=== PATIENT | female | born 1980 | race Hispanic/Latino ===

== ENCOUNTER → 2019-02-11 10:36 | Outpatient (CLI) | payer OTHER, SELFPAY | PROVIDERS: Family Provider Family Medicine; PCP Family Medicine; Visit Provider Physician Assistant | DX: R68.89 Other general symptoms and signs (principal) | CPT/HCPCS: 87400 ==

== ENCOUNTER → 2019-02-26 13:53 | Outpatient (CLI) | payer OTHER, SELFPAY ==
[2019-02-26 14:43] LABS: Add Manual Diff / Slide Review NO; Basophils Absolute Auto 0 /uL (0-100); Basophils Percent Auto 0.3 % (0-2); Eosinophils Absolute Auto 100 /uL (0-450); Eosinophils Percent Auto 1.9 % (2-4); Lymphocytes Absolute Auto 2300 /uL (1100-4500); Lymphocytes Percent Auto 33.8 % (25-40); Mean Corpuscular HGB Conc 31.4 % (30-36); Mean Corpuscular Volume 76.3 fL (80-100); Monocytes Absolute Auto 600 /uL (0-900); Monocytes Percent Auto 8.2 % (3-14); Neutrophils Absolute Auto 3900 /uL (1500-7000); Neutrophils Percent Auto 55.8 % (50-75); Platelet Count 307 X10^3/uL (150-400); Red Blood Cell Count 4.59 X10^6/uL (4.0-5.2); Red Cell Distribution Width 16.7 % (11.6-14.8); White Blood Cell Count 6.9 X10^3/uL (4.5-11.0)
[2019-02-26 15:48] LABS: Free T3, Triiodothyronine Free 3.25 pg/mL (2.77-5.27); Free T4, Direct Thyroxine 1.29 ng/dL (0.78-2.19)
[2019-02-26 16:02] LABS: Thyroid Stimulating Hormone 1.93 uIU/mL (0.47-4.68)
== END ==
PROVIDERS: PCP Family Medicine; Visit Provider Family Medicine
DX: D50.8 Other iron deficiency anemias (principal); E05.00 Thyrotoxicosis with diffuse goiter without thyrotoxic crisis or storm
CPT/HCPCS: 36415; 84439; 84443; 84481; 85025

== ENCOUNTER → 2020-08-22 10:45 | Outpatient (CLI) | payer OTHER, SELFPAY ==
[2020-08-22 11:42] LABS: Add Manual Diff / Slide Review NO; Basophils Absolute Auto 0 /uL (0-100); Basophils Percent Auto 0.5 % (0-2); Eosinophils Absolute Auto 100 /uL (0-450); Eosinophils Percent Auto 1.2 % (2-4); Hematocrit 37.2 % (36-46); Hemoglobin 12.1 g/dL (12.0-16.0); Lymphocytes Absolute Auto 1900 /uL (1100-4500); Lymphocytes Percent Auto 30.7 % (25-40); Mean Corpuscular HGB Conc 32.5 % (30-36); Mean Corpuscular Volume 80.1 fL (80-100); Monocytes Absolute Auto 500 /uL (0-900); Monocytes Percent Auto 8.1 % (3-14); Neutrophils Absolute Auto 3700 /uL (1500-7000); Neutrophils Percent Auto 59.5 % (50-75); Platelet Count 245 X10^3/uL (150-400); Red Blood Cell Count 4.65 X10^6/uL (4.0-5.2); Red Cell Distribution Width 14.3 % (11.6-14.8); White Blood Cell Count 6.3 X10^3/uL (4.5-11.0)
[2020-08-22 11:59] LABS: Alanine Aminotransferase 35 IU/L (<35); Albumin 4.4 g/dL (3.5-5.0); Albumin Globulin Ratio 1.4 (1.0-2.8); Alkaline Phosphatase 70 U/L (38-126); Aspartate Aminotransferase 30 IU/L (14-36); BUN Creatinine Ratio 18.5 (6-22); Bilirubin Total 0.4 mg/dL (0.2-1.3); Blood Urea Nitrogen 10 mg/dL (7-17); Calcium 8.8 mg/dL (8.4-10.2); Carbon Dioxide 24 mmol/L (22-32); Chloride 106 mmol/L (98-107); Cholesterol 194 mg/dL (140-199); Estimated Glomerular Filt Rate > 60.0 mL/min (>60); Globulin 3.1 g/dL (1.7-4.1); Glucose 94 mg/dL (70-100); HDL Cholesterol 56 mg/dL (40-60); HEMOLYSIS < 15 (0-50); LDL Cholesterol Calculated 120 mg/dL (<100); Potassium 4.3 mmol/L (3.4-5.1); Sodium 138 mmol/L (137-145); Total Protein 7.5 g/dL (6.3-8.2); Triglycerides 91 mg/dL (35-150)
[2020-08-22 12:27] LABS: TSH w/ Reflex to FT4 2.03 uIU/mL (0.47-4.68)
== END ==
PROVIDERS: PCP Family Medicine; Referring Provider Family Medicine; Visit Provider Family Medicine
DX: N39.0 Urinary tract infection, site not specified (principal); D50.8 Other iron deficiency anemias; E05.00 Thyrotoxicosis with diffuse goiter without thyrotoxic crisis or storm
CPT/HCPCS: 36415; 80053; 80061; 84443; 85025; 87086

== ENCOUNTER → 2020-09-27 13:54 | Outpatient (CLI) | payer OTHER, SELFPAY ==
[2020-09-29 07:28] LABS: COVID19 Sendout Not Detected (Not Detect)
== END ==
PROVIDERS: PCP Family Medicine; Visit Provider Physician Assistant
DX: Z11.59 Encounter for screening for other viral diseases (principal)
CPT/HCPCS: 87635

== ENCOUNTER → 2022-05-25 16:02 | Outpatient (CLI) | payer OTHER, SELFPAY ==
[2022-05-25 17:47] LABS: Urine N gonorrhoeae NOT DETECTED
[2022-05-25 17:48] LABS: Urine Chlamydia NOT DETECTED
== END ==
PROVIDERS: PCP Nurse Practitioner; Visit Provider Nurse Practitioner Family
DX: R30.0 Dysuria (principal); N89.8 Other specified noninflammatory disorders of vagina; Z11.3 Encounter for screening for infections with a predominantly sexual mode of transmission
CPT/HCPCS: 87086; 87210; 87491; 87591

== ENCOUNTER 2022-05-26 20:47 | Emergency (ER) | payer OTHER, SELFPAY ==
[2022-05-26 20:50] VITALS: BP 144/62; PULSE 90; RESP 18; TEMP 35.7; O2SAT 100; BMI 26.7
[2022-05-26 22:07] LABS: Bacteria Urine Moderate (10-30); RBC Urine 1-5/HPF (0-5/HPF); Squamous Epithelial Cell Urine 1-5 /HPF (0-5/HPF); WBC Urine 0-1/HPF (0-5/HPF)
[2022-05-26 23:02] LABS: Basophils Absolute Auto 100 /uL (0-100); Basophils Percent Auto 0.6 % (0-2); Eosinophils Absolute Auto 200 /uL (0-450); Eosinophils Percent Auto 2.7 % (2-4); Hematocrit 31.8 % (36-46); Hemoglobin 10.3 g/dL (12.0-16.0); Lymphocytes Absolute Auto 3700 /uL (1100-4500); Lymphocytes Percent Auto 41.3 % (25-40); Mean Corpuscular HGB Conc 32.5 % (30-36); Mean Corpuscular Hemoglobin 22.1 PG (26-34); Mean Corpuscular Volume 68.1 fL (80-100); Monocytes Absolute Auto 600 /uL (0-900); Monocytes Percent Auto 7.2 % (3-14); Neutrophils Absolute Auto 4400 /uL (1500-7000); Neutrophils Percent Auto 48.2 % (50-75); Platelet Count 363 X10^3/uL (150-400); Red Blood Cell Count 4.67 X10^6/uL (4.0-5.2); Red Cell Distribution Width 16.9 % (11.6-14.8); White Blood Cell Count 9.1 X10^3/uL (4.5-11.0)
[2022-05-26 23:03] LABS: Add Manual Diff / Slide Review SLIDE REVIEW
[2022-05-26 23:09] LABS: Alanine Aminotransferase 23 IU/L (<35); Albumin 4.6 g/dL (3.5-5.0); Albumin Globulin Ratio 1.3 (1.0-2.8); Alkaline Phosphatase 91 U/L (38-126); Aspartate Aminotransferase 27 IU/L (14-36); BUN Creatinine Ratio 24.1 (6-22); Bilirubin Total 0.3 mg/dL (0.2-1.3); Blood Urea Nitrogen 13 mg/dL (7-17); Calcium 8.9 mg/dL (8.4-10.2); Carbon Dioxide 26 mmol/L (22-32); Chloride 104 mmol/L (98-107); Estimated Glomerular Filt Rate > 60 mL/min (>60); Globulin 3.5 g/dL (1.7-4.1); Glucose 95 mg/dL (70-100); HEMOLYSIS < 15 (0-50); Lipase 181 U/L (23-300); Potassium 3.8 mmol/L (3.4-5.1); Sodium 140 mmol/L (137-145); Total Protein 8.1 g/dL (6.3-8.2)
[2022-05-26 23:38] LABS: Anisocytosis 2+; Hypochromasia 1+; Microcytosis 1+
--- NOTE | 2022-05-27 01:41 | ED_ITS ---
HPI - General Adult General Chief complaint: Abdominal Pain Stated complaint: LOWER LEFT ABD PAIN Time Seen by Provider: 05/27/22 01:40 Source: patient Mode of arrival: Ambulatory History of Present Illness HPI narrative: 42-year-old woman with no significant medical history presents with 3 days of abdominal pain that started initially with burning in the upper abdomen and now has settled into the left lower quadrant/pelvic area. She states that she has bilateral tubal ligation for number of years. She does note that for the last couple of months she has been having abnormal menstrual cycles. Usually she has 2-3 heavy days only and over last month she has noticed spotting prior to her heavy bleeding, she had 1 month with 2 weeks of moderate bleeding. She does not typically have increased pain or significant cramping with her cycles. She notes that she has regular bowel movements but they will frequently vacillate between diarrhea and constipation and may well be related to life stressors. At 42 years of age she is not reporting any hot flashes or significant vaginal dryness to suggest early menopause. She does not note any changed vaginal discharge has not had new sexual partners and is not concerned with sexually transmitted infections at this time. She denies chest pain, fevers, cough, palpitations, headache Related Data Previous Rx's Medication Instructions Recorded escitalopram oxalate 10 mg tablet 10 mg PO DAILY #30 tabs 11/11/20 zolpidem 5 mg tablet 5 mg PO BEDTIME PRN sleep #10 tabs 11/11/20 metronidazole 500 mg tablet 500 mg PO BID 7 days #14 tabs 05/25/22 Allergies Allergy/AdvReac Type Severity Reaction Status Date / Time adhesive Allergy Unknown LOCAL Verified 05/25/22 15:32 BLISTER FROM ADHESIVE AND TAPE Review of Systems Review of Systems Narrative: Remainder of complete review of systems is otherwise unremarkable except for that included in the HPI. Patient History Medical History Graves' disease (10/09/16) Other iron deficiency anemia (10/09/16) Vitiligo Surgical History History of third molar tooth extraction Status post delivery (09/17/03) Status post delivery (07/09/07) Status post delivery (10/22/12) Status post delivery (02/17/15) Status post tubal ligation (02/17/15) Social History Smoking Status: Never smoker Smoking Status: Never smoker Exam Initial Vital Signs Initial Vital Signs: Vital Signs Temperature 96.2 F L 05/26/22 20:50 Pulse Rate 90 05/26/22 20:50 Respiratory Rate 18 05/26/22 20:50 Blood Pressure 144/62 H 05/26/22 20:50 Pulse Oximetry 100 05/26/22 20:50 Oxygen Delivery Method 05/26/22 20:50 General: Healthy appearing, in no acute distress. Able to give a complete and coherent history. Well-nourished well-developed HEENT: Moist mucous membranes, normal sclera with reactive pupils, Neck: No JVD, supple Respiratory: Lungs are clear to auscultation, no wheezing no rales no rhonchi. Full and symmetrical air movement Cardiac: Regular rate and rhythm no murmurs no bruits Abdomen: Soft, mildly tender in the left lower quadrant without rebound or guarding, no flank pain Skin: Warm and dry, no rashes Neurologic: Grossly neurologically intact with no obvious asymmetries or abnormalities Extremities: No trauma, well perfused Psych: Cooperative, appropriate insight and affect Course Orders Ordered: ED Orders 05/26/22 21:20 Urine Culture Stat Urine Microscopic Stat 05/26/22 22:47 Complete Blood Count AUTO DIFF Stat Comprehensive Metabolic Panel Stat Lipase Stat 05/27/22 01:49 CT abdomen pelvis w con Stat Vital Signs Vital signs: Vital Signs - 8 hr 05/26/22 20:50 Temperature 96.2 F L Pulse Rate 90 Respiratory Rate 18 Blood Pressure 144/62 H Pulse Oximetry 100 Oxygen Delivery Method Room Air Medical Decision Making Lab Data Result diagrams: 05/26/22 22:47 05/26/22 22:47 Labs: Lab Results 05/26/22 05/26/22 05/26/22 Range/Units 21:20 22:47 22:47 WBC 9.1 (4.5-11.0) X10^3/uL RBC 4.67 (4.0-5.2) X10^6/uL Hgb 10.3 L (12.0-16.0) g/dL Hct 31.8 L (36-46) % MCV 68.1 L (80-100) fL MCH 22.1 L (26-34) PG MCHC 32.5 (30-36) % RDW 16.9 H (11.6-14.8) % Plt Count 363 (150-400) X10^3/uL Neut % (Auto) 48.2 L (50-75) % Lymph % (Auto) 41.3 H (25-40) % Robertson % (Auto) 7.2 (3-14) % Eos % (Auto) 2.7 (2-4) % Baso % (Auto) 0.6 (0-2) % Neut # (Auto) 4400 (2906-9150) /uL Lymph # (Auto) 3700 (1393-1776) /uL Robertson # (Auto) 600 (0-900) /uL Eos # (Auto) 200 (0-450) /uL Baso # (Auto) 100 (0-100) /uL RBC Morphology See below Hypochromasia 1+ H Anisocytosis 2+ H Microcytosis 1+ H Sodium 140 (137-145) mmol/L Potassium 3.8 (3.4-5.1) mmol/L Chloride 104 (98-107) mmol/L Carbon Dioxide 26 (22-32) mmol/L BUN 13 (7-17) mg/dL Creatinine 0.54 (0.52-1.04) mg/dL Estimated GFR > 60 (>60) mL/min BUN/Creatinine Ratio 24.1 H (6-22) Glucose 95 (70-100) mg/dL Calcium 8.9 (8.4-10.2) mg/dL Total Bilirubin 0.3 (0.2-1.3) mg/dL AST 27 (14-36) IU/L ALT 23 (<35) IU/L Alkaline Phosphatase 91 (38-126) U/L Total Protein 8.1 (6.3-8.2) g/dL Albumin 4.6 (3.5-5.0) g/dL Globulin 3.5 (1.7-4.1) g/dL Albumin/Globulin Ratio 1.3 (1.0-2.8) Lipase 181 (23-300) U/L Urine RBC 1-5/hpf (0-5/HPF) Urine WBC 0-1/hpf (0-5/HPF) Ur Squamous Epith Cells 1-5 /hpf (0-5/HPF) Urine Bacteria Moderate (10-30) H (None) Ur Culture Indicated? Culture not indicate Micro UA Comment * Point of Care Testing Test Results Negative Urine Dip Bedside Urine Glucose Negative Bedside Urine Bilirubin - Negative Bedside Urine Ketone - Negative Urine Specific Merriman 1.010 Bedside Urine Occult Blood +/- Bedside Urine pH 8 Bedside Urine Protein - Negative Bedside Urine Urobilinogen - Negative Bedside Urine Nitrite - Negative Bedside Urine Leukocytes +/- 15 Esterase Point of care testing: Point of Care Testing Test Results Negative Urine Dip Bedside Urine Glucose Negative Bedside Urine Bilirubin - Negative Bedside Urine Ketone - Negative Urine Specific Merriman 1.010 Bedside Urine Occult Blood +/- Bedside Urine pH 8 Bedside Urine Protein - Negative Bedside Urine Urobilinogen - Negative Bedside Urine Nitrite - Negative Bedside Urine Leukocytes +/- [address] scan - abdomen/pelvis: Radiologist's Impression: No bowel obstruction, no inflammatory bowel changes, moderate fecal contents in the right hemicolon, normal appendix, mildly thickened enhancing left fallopian tube wall with minor luminal fluid without adjacent inflammatory changes. Early pelvic inflammatory disease within the differential. Carissa Sabillon DO [facility] Narrative Medical decision making narrative: 42-year-old woman with initial upper abdominal pain now left lower quadrant pain cramping that has improved during her emergency room visit. No fevers no significant lab abnormalities and because of the tenderness in her left lower quadrant a CT scan was done with concerns for diverticulitis. She does not have diverticulitis, appendicitis, inflammatory bowel changes but does have mild thickened enhancing left fallopian tube wall with minor luminal fluid without adjacent inflammatory changes. Uncertain what this actually represents however without inflammatory changes, improving pain and no evidence of infection on lab work I am less suspicious for tubo-ovarian abscess or pelvic inflammatory disease. test was negative today. Findings were reviewed with the patient and as she is feeling better recommended outpatient follow-up with OBGYN and she will call later this week to schedule appointment. I have encouraged her to return if symptoms worsen. She is safe for home discharge Discharge Plan Departure Patient Disposition: Home Clinical Impression: Fallopian tube disorder Activity Restrictions/Additional Instructions: Thank you for coming in today Your CT scan shows some mild abnormality in your left fallopian tube and I suspect that is where pain is coming from. This does not appear to be acutely infected but is slightly swollen with a small amount of fluid inside the tube. The remainder of your exam and laboratory workup does not suggest infection. At this time I think we have an explanation for the intermittent left lower abdominal/pelvic pain that you have been noticing. It is not an emergency however it does certainly need additional follow-up. Please call [address] at [phone] to set up an appointment with Dr. Adrian or 1 of her partners for further evaluation. Using 400 mg of ibuprofen (2 [id number] pills) and 1 Tylenol every 6 hours can be very helpful in controlling pain. If you find that you are getting worse or develop any new symptoms, please feel free to return to the emergency department for further evaluation. Prescriptions: No Action metronidazole 500 mg tablet 500 mg PO BID 7 Days Qty: 14 0RF escitalopram oxalate 10 mg tablet 10 mg PO DAILY Qty: 30 1RF zolpidem 5 mg tablet 5 mg PO BEDTIME PRN (Reason: sleep) Qty: 10 0RF Referrals: Brenda Mendez ARNP [Primary Care Provider] - Xiomy Adrian MD [Physician] -
--- NOTE | 2022-05-27 01:49 | DI.CT.S_ITS ---
PROCEDURE: CT ABDOMEN PELVIS W CON INDICATIONS: LLQ pain TECHNIQUE: After the administration of oral and intravenous contrast, axial sections were acquired from the lung bases to the pubic symphysis. Coronal and sagittal reformats were performed. For radiation dose reduction, the following was used: automated exposure control, adjustment of mA and/or kV according to patient size. COMPARISON:None. FINDINGS: Image quality: Excellent. Lung bases: Lung bases are clear. Heart size is normal. Solid organs: Liver: The liver has no mass or intrahepatic biliary ductal dilatation. The portal vein and hepatic veins are patent. Biliary: The gallbladder is contracted and has no gallstones, pericholecystic fluid, gallbladder wall thickening, or surrounding inflammatory change. Pancreas: The pancreas has no mass or ductal dilatation. There is no surrounding inflammation. Spleen: Normal size. There are no masses. Adrenals: No hypertrophy or nodules. Kidneys: No obstructive calculus or hydronephrosis. No solid mass. No cystic mass. Peritoneum and bowel: The distal esophagus and stomach are normal. The small bowel has a normal caliber and appearance. The terminal ileum is normal. The large bowel has a normal caliber and appearance. The appendix is normal. No free fluid or air. Nodes and vessels: No retroperitoneal or mesenteric adenopathy by size criteria. Aorta and inferior vena cava are normal in size. Miscellaneous: No abdominal wall mass or hernia. PELVIS: Genitourinary: The bladder has no wall thickening or mass. No bladder calcifications. several nabothian cysts are noted. Mildly thickened enhancing wall of the left fallopian tube with minor luminal fluid. No adjacent inflammatory changes. No organized drainable fluid collection to suggest abscess. No go vein thrombosis or significant pelvic venous congestion. Bones: No suspicious bony lesions. No vertebral body compression fractures. IMPRESSION: Mildly thickened left fallopian tube wall with enhancement and minor luminal fluid without adjacent inflammatory changes. Early pelvic inflammatory disease is within the differential. Comment: Final report is concordant with preliminary interpretation by [facility] Dictated by: Trey King M.D. on 05/27/2022 at 7:07 Approved by: Trey King M.D. on 05/27/2022 at 7:12
[2022-05-27 03:46] VITALS: BP 123/81; PULSE 74; RESP 18; O2SAT 99
== END 2022-05-27 03:47 | disposition home or self-care (01) ==
PROVIDERS: Emergency Provider Emergency Medicine; PCP Nurse Practitioner
DX: N83.9 Noninflammatory disorder of ovary, fallopian tube and broad ligament, unspecified (principal)
CPT/HCPCS: 74177; 80053; 81003; 81015; 81025; 83690; 85025; 87086; 99282; 99284; Q9967

== ENCOUNTER → 2022-06-01 09:35 | Outpatient (CLI) | payer OTHER, SELFPAY ==
[2022-06-01 10:24] LABS: COVID19 -Nasal RAPID Negative (Negative)
== END ==
PROVIDERS: PCP Nurse Practitioner; Visit Provider Obstetrics & Gynecology
DX: Z20.822 Contact with and (suspected) exposure to COVID-19 (principal); Z01.812 Encounter for preprocedural laboratory examination
CPT/HCPCS: 87635

== ENCOUNTER 2022-06-04 06:33 | Day surgery (SDC) | payer OTHER, SELFPAY ==
--- NOTE | 2022-06-04 | PATH_ITS ---
[facility] Accession Number: [id number] . 01 Material submitted: . PART A: fallopian tube - BILATERAL FALLOPIAN TUBES PART B: endometrium - ENDOMETRIAL CURETTINGS . 01 Diagnosis: A. Bilateral Fallopian Tubes: Fallopian tube #1 with two benign paratubal cysts (3 mm and 5 mm), complete cross-sections; negative for atypia or malignancy. Fallopian tube #2, complete cross-sections; negative for atypia or malignancy. . B. Endometrial Curettings: Portions of dys-synchronous endometrium; negative for glandular hyperplasia, cytologic atypia, or malignancy. Some endometrial fragments demonstrate prominent vessels, suggestive of polyp, if clinical and imaging studies are concordant. [facility] 06/06/2022 1457 Local . 01 Electronically signed: . Luisana Ayon MD, Pathologist NPI- [id number] . 01 Gross description: . A. Received in formalin in a specimen container labeled with the patient's name, medical record number, and bilateral fallopian tubes, are two unoriented fallopian tubes with detached fimbriae. No orientation is provided. Fallopian tube #1 measures 4.0 cm in length and 0.7 cm in diameter. Fallopian tube #2 measures 3.0 cm in length and 0.7 cm in diameter. Both fallopian tube serosal surfaces are pink, smooth, and glistening. Within fallopian tube #1, there are two paratubal cysts filled by translucent serous content that measures 0.3 and 0.5 cm in greatest dimension. Both fallopian tubes are serially sectioned to reveal unremarkable patent lumen that measures 0.2 cm in diameter. The fimbriae measure 2.0 x 1.3 x 0.9 cm and 1.5 x 1.3 x 0.7 cm. Client Relationship Executive sections are submitted as follows: . A1: Fallopian tube #1 with paratubal cysts in one of the fimbriae. A2: Fallopian tube #2 with fimbriae. . B. Received in formalin in a specimen container labeled with the patient's name, medical record number, and endometrial curettings, is an aggregate of multiple irregularly shaped curry-pink and red soft tissue fragments that measure 3.0 x 3.0 x 1.2 cm. Also in the same container is a moderate amount of semitranslucent pink-red mucus that measures 1.1 x 0.5 cm. The largest fragments are serially sectioned and the specimen is entirely submitted in cassettes B1 and B2. ([id number]) /MRV 06/05/2022 [facility] . 01 Pathologist provided ICD-10: Z30.2, Z30.430, N70.11, N92.0, N84.0 . 01 CPT . 362002, 609932 Specimen Comment: A courtesy copy of this report has been sent to [phone] Performed at: 01 [facility] [address] [place] [address] [id number] MD Rommel Bah MD Phone: [phone]
[2022-06-04 06:53] VITALS: BP 122/76; PULSE 104; RESP 18; TEMP 36.2; O2SAT 97
[2022-06-04 06:55] VITALS: BMI 27.1
[2022-06-04] MEDS: LACTATED RINGERS 1,000 ML 100 ML IV (07:16)
--- NOTE | 2022-06-04 07:32 | P.HP_ITS ---
History of Present Illness History of Present Illness Date Patient Seen: 06/04/22 Time Patient Seen: 07:32 Chief complaint: [facility] [place] Narrative: Patient is a 42-year-old 5 para 4 with a left hydrosalpinx. She had presented to the emergency department last week. This is causing significant pain. She also has heavy periods. She presents for a laparoscopic removal of both tubes and placement of Mirena IUD. Patient History Medical History Graves' disease (10/09/16) Other iron deficiency anemia (10/09/16) Vitiligo Surgical History History of third molar tooth extraction Status post delivery (09/17/03) Status post delivery (07/09/07) Status post delivery (10/22/12) Status post delivery (02/17/15) Status post tubal ligation (02/17/15) Family & Social History Social History: household members spouse Tobacco & Substance use: Smoking Status Never smoker alcohol intake current alcohol intake frequency holiday/special occasion Substance Use Type does not use Meds Home Medications and Allergies Home Medications Medication Instructions Recorded Confirmed Type No Known Home Medications 06/04/22 06/04/22 History Allergies Allergy/AdvReac Type Severity Reaction Status Date / Time adhesive Allergy Unknown LOCAL Verified 06/04/22 07:00 BLISTER FROM ADHESIVE AND TAPE Exam Vital Signs (past 8 hours): - 06/04/22 06:53 Temperature 97.2 F L Pulse Rate 104 H Respiratory Rate 18 Blood Pressure 122/76 Pulse Oximetry 97 Oxygen Delivery Method Room Air Oxygen Delivery Method Room Air Narrative Exam Narrative: HEENT: No thyromegaly, no anterior cervical or supraclavicular lymphadenopathy. Lungs:Clear to auscultation bilaterally, no wheezes. Cardiovascular: Regular rate and rhythm, no murmurs, rubs, or gallops. Abdomen: Well-healed Pfannenstiel scars. No hepatosplenomegaly. No masses palpable. External genitalia: Normal Vagina: Normal Cervix: Normal Bimanual exam: 7 Week size anterior uterus. Mobile. Left adnexal tenderness. Extremities: No edema Assessment & Plan Assessment & Plan narrative: Assessment: 42-year-old 5 para 4 with a left hydrosalpinx and menorrhagia Plan: Laparoscopic bilateral salpingectomy and placement of Mirena IUD The risks, benefits, and alternatives to the procedure were explained to the patient. The risks including bleeding, infection, injury to the bowel, bladder, ureters, or uterine perforation. She understands these risks and agrees to proceed. A full par Q was held and consent form was signed. COVID-19 COVID-19 status: Negative Result date/Date tested (Pos, Neg/Pending): 06/01/22 Time Spent With Patient Time with patient: less than 30 minutes Critical Care time: I spent a total of [] minutes of critical care time on this patient's care today; this time is exclusive of procedural time.
--- NOTE | 2022-06-04 07:35 | PM.PREOP ---
Pre-operative Note COVID-19 COVID-19 status: Negative Result date/Date tested (Pos, Neg/Pending): 06/01/22 Criteria for continued procedure: Non-surgical alternatives not available or appropriate per current SOC Interval Note History & Physical reviewed/Exam performed by Physician: Yes Changes to H&P: No H&P completed within 30 days and has changed as indicated here:: 06/04/22
--- NOTE | 2022-06-04 08:16 | SUR.OPER ---
Lithotomy on padded OR bed, head on pillow, arms secured on padded arm boards at <90 degrees abduction. Legs secured in padded yellow fins stirrups. Position approved by surgeon and anesthesia
[2022-06-04] MEDS: BUPIVACAINE 0.5% (PF) 30 ML, EPINEPHrine 0.15 MG INJ (08:25)
[2022-06-04 09:00] VITALS: BP 101/59; PULSE 109; RESP 16; TEMP 36.4; O2SAT 98
[2022-06-04 09:05] VITALS: BP 105/53; PULSE 99; RESP 20; TEMP 36.1; O2SAT 100
[2022-06-04 09:10] VITALS: BP 107/64; PULSE 103; RESP 20; TEMP 35.9; O2SAT 100
[2022-06-04 09:14] VITALS: BP 108/67; PULSE 100; RESP 20; TEMP 36.3; O2SAT 100
--- NOTE | 2022-06-04 09:17 | PM.GYNOP.1 ---
Operative Date/Time/Diagnoses Date of procedure: 06/04/22 Time of procedure: 09:18 Pre-op diagnosis: Left hydrosalpinx Pelvic pain Menorrhagia Post-op diagnosis: same Procedure & Clinicians Procedure: Procedures Operation Date: 06/04/22 07:45 Actual Procedure Side Surgeon p Laparoscopic Salpingectomy Bilateral Xiomy Adrian MD s Insertion of Mirena IUD Xiomy Adrian MD Indications: Left hydrosalpinx Pelvic pain Menorrhagia Surgeon: Xiomy Adrian Anesthesia Type: General and Local Operative Notes Findings: Left hydrosalpinx Omental to anterior abdominal wall adhesions Closure Type: primary Specimen(s): endometrial curettings, left tube and right tube Applied: catheter Estimated blood loss (mL): 10 Blood products transfused: none Procedure in detail: After informed consent was obtained, the patient was taken to the operating room where she was placed in the dorsal supine position. After adequate general endotracheal anesthesia was achieved, she was placed in the dorsal lithotomy position, and prepped and draped in the usual sterile fashion. A time-out was performed. A bivalve speculum was placed into the vagina and the anterior lip of the cervix was grasped with a single-tooth tenaculum. The cervical os was sequentially dilated until the Zumi uterine manipulator could pass easily into the endometrial cavity. The single-tooth tenaculum was removed from the anterior lip of the cervix. The bivalve speculum was removed from the vagina. Attention was turned to the abdomen where 6 cc of 0.5% Marcaine with epinephrine were injected in the umbilical fold. A 5 mm incision was made. The Veress needle was placed into the peritoneal cavity, and its placement confirmed by aspiration and drop test. The abdominal cavity was insufflated with 3.4 L of CO2. Veress needle was removed, and a 5 mm trocar was placed without difficulty. Two other 5 mm incisions were placed 4 cm lateral to the midline after 6 cc of 0.5% Marcaine with epinephrine were injected. Two 5 mm trocars were placed under direct visualization. The power seal was used to take omental to anterior abdominal wall adhesions down. The right tube was grasped with an atraumatic grasper. Using the power ERICKA, the mesosalpinx was cauterized and cut all the way down to the cornua of the uterus. The tube was amputated at the cornua. The tube was removed through the lateral trocar. This was repeated on the patient's right tube. Hemostasis was achieved. The instruments were removed from the abdomen. The CO2 was allowed to escape. The incisions were closed with 4-0 Monocryl in a subcuticular fashion. Steri-Strips and Allevyn dressings were placed. Attention was then turned back to the vagina where the Zumi uterine manipulator was removed from the uterus. A bivalve speculum was placed into the vagina. A single-tooth tenaculum was placed on the anterior lip of the cervix. Sharp curettage was performed yielding a large amount of endometrial curettings. The uterus sounded to 7 cm. The Mirena IUD was placed at the fundus of the uterus. The strings were cut to 1.5 cm. The bivalve speculum was removed from the vagina. Sponge, lap, and instrument counts were correct x2. The patient tolerated the procedure well, and was taken to PACU in stable condition. Complications: none Post-operative Condition: stable Disposition: PACU Plan for aftercare: Home after recovery
[2022-06-04 09:50] VITALS: BP 116/76; PULSE 89; RESP 16; TEMP 36.6; O2SAT 100
== END 2022-06-04 10:00 | disposition home or self-care (01) ==
PROVIDERS: PCP Nurse Practitioner; Referring Provider Obstetrics & Gynecology; Visit Provider Obstetrics & Gynecology
PROC: 0UT74ZZ Resection of Bilateral Fallopian Tubes, Percutaneous Endoscopic Approach (ICD-10-PCS; CPT 58661; principal; 2022-06-04 07:45)
PROC: (CPT 58661; 2022-06-04 07:45)
DX: N70.11 Chronic salpingitis (principal); N92.0 Excessive and frequent menstruation with regular cycle; R10.2 Pelvic and perineal pain; Z30.430 Encounter for insertion of intrauterine contraceptive device
CPT/HCPCS: 58661; 58300; 81025; J0171; J1100; J1885; J2250; J2405; J2704; J3010; J7298

== ENCOUNTER → 2022-09-11 08:52 | Outpatient (CLI) | payer OTHER, SELFPAY ==
[2022-09-11 09:40] LABS: Add Manual Diff / Slide Review NO; Basophils Absolute Auto 0 /uL (0-100); Basophils Percent Auto 0.5 % (0-2); Eosinophils Absolute Auto 100 /uL (0-450); Eosinophils Percent Auto 2.9 % (2-4); Hematocrit 33.3 % (36-46); Hemoglobin 10.3 g/dL (12.0-16.0); Lymphocytes Absolute Auto 1800 /uL (1100-4500); Lymphocytes Percent Auto 42.5 % (25-40); Mean Corpuscular Hemoglobin 21.7 PG (26-34); Monocytes Absolute Auto 400 /uL (0-900); Monocytes Percent Auto 10.4 % (3-14); Neutrophils Absolute Auto 1800 /uL (1500-7000); Neutrophils Percent Auto 43.7 % (50-75); Platelet Count 281 X10^3/uL (150-400); Red Blood Cell Count 4.76 X10^6/uL (4.0-5.2); Red Cell Distribution Width 18.9 % (11.6-14.8); White Blood Cell Count 4.2 X10^3/uL (4.5-11.0)
[2022-09-11 10:15] LABS: Alanine Aminotransferase 18 IU/L (<35); Albumin 4.1 g/dL (3.5-5.0); Albumin Globulin Ratio 1.3 (1.0-2.8); Alkaline Phosphatase 62 U/L (38-126); Aspartate Aminotransferase 22 IU/L (14-36); BUN Creatinine Ratio 20.3 (6-22); Bilirubin Total 0.4 mg/dL (0.2-1.3); Blood Urea Nitrogen 12 mg/dL (7-17); Calcium 8.3 mg/dL (8.4-10.2); Carbon Dioxide 27 mmol/L (22-32); Chloride 107 mmol/L (98-107); Cholesterol 185 mg/dL (140-199); Estimated Glomerular Filt Rate > 60 mL/min (>60); Globulin 3.1 g/dL (1.7-4.1); Glucose 93 mg/dL (70-100); HDL Cholesterol 47 mg/dL (40-60); HEMOLYSIS < 15 (0-50); LDL Cholesterol Calculated 128 mg/dL (<100); Potassium 4.7 mmol/L (3.4-5.1); Sodium 140 mmol/L (137-145); Total Protein 7.2 g/dL (6.3-8.2); Triglycerides 49 mg/dL (35-150)
[2022-09-11 10:31] LABS: Free T3, Triiodothyronine Free 3.49 pg/mL (2.77-5.27); Free T4, Direct Thyroxine 1.38 ng/dL (0.78-2.19)
[2022-09-11 10:44] LABS: Thyroid Stimulating Hormone 0.598 uIU/mL (0.47-4.68)
== END ==
PROVIDERS: PCP Nurse Practitioner; Referring Provider Nurse Practitioner; Visit Provider Nurse Practitioner
DX: Z00.00 Encounter for general adult medical examination without abnormal findings (principal); D50.8 Other iron deficiency anemias; N92.0 Excessive and frequent menstruation with regular cycle; E05.00 Thyrotoxicosis with diffuse goiter without thyrotoxic crisis or storm
CPT/HCPCS: 36415; 80053; 80061; 84439; 84443; 84481; 85025

== ENCOUNTER → 2022-09-19 07:25 | Outpatient (CLI) | payer OTHER, SELFPAY ==
--- NOTE | 2022-09-19 07:27 | DI.US.S_ITS ---
PROCEDURE: US PELVIC COMPLETE INDICATIONS: DUB TECHNIQUE: Real-time scanning was performed of the pelvic organs, with image documentation. Additional endovaginal scanning was necessary due to incomplete visualization of the adnexal and endometrial structures by transabdominal scanning. COMPARISON: None. FINDINGS: Uterus: Uterus is anteverted and normal in size at 10.6 x 4.7 x 5.6 cm. The myometrium is homogeneous. The endometrium measures 6 mm combined thickness. An intrauterine device is identified within the endometrial cavity and appears appropriately positioned. Ovaries: The right ovary measures 3.0 x 2.9 x 1.9 cm, with a calculated ovarian volume of 8.9 cc. The left ovary measures 1.3 x 2.0 x 1.3 cm, with a calculated ovarian volume of 1.7 cc. The ovaries have a normal sonographic appearance. Less than 12 follicles can be seen in each ovary. No adnexal masses are seen. There is a 1.9 x 1.5 x 1.9 cm simple right ovarian cyst. Other: No pathologic free abdominal or pelvic fluid. IMPRESSION: 1. Pelvic ultrasound without sonographic abnormalities to explain patient's symptoms. 2. An intrauterine device is in place and appears to be appropriately positioned within the endometrial cavity. We strive to produce accurate, complete, and clear reports of imaging services. To assist us in improving patient care, this report was composed using standard report templates and voice recognition software. Therefore, it may contain abnormal punctuation, insertions and/or omissions. Occasional wrong-word or sound-alike substitutions may occur. Though we review the report and make efforts to correct it, we do recommend that the report be read carefully in proper context to recognize any text inaccuracies. Dictated by: Jevon Meza M.D. on 09/19/2022 at 10:15 Approved by: Jevon Meza M.D. on 09/19/2022 at 10:17
--- NOTE | 2022-09-19 07:27 | DI.MG.S_ITS ---
BILATERAL DIGITAL SCREENING MAMMOGRAM 3D/2D WITH CAD: 09/19/2022 CLINICAL: Baseline exam. Routine screening. No prior exams were available for comparison. Both breasts are heterogeneously dense, which may obscure small masses (category c / 51-75% glandular tissue). Current study was also evaluated with a Computer Aided Detection (CAD) system. No significant masses, calcifications, or other findings are seen in either breast. IMPRESSION: NEGATIVE There is no mammographic evidence of malignancy. A 1 year screening mammogram is recommended. Based on the Tyrer Cuzick model (a risk assessment model) the patient's lifetime risk is 9.8% and her 10 year risk is 1.2%. According to the ACR, ACS, and NCCN guidelines, an annual breast MRI exam along with mammogram is recommended if the patient's lifetime risk is 20% or greater. This exam was interpreted at Station ID: [id number]. NOTE: For mammograms, a report in lay terms will be sent to the patient. Approximately 15% of breast malignancies will not be visualized mammographically. In the management of a palpable breast mass, a negative mammogram must not discourage biopsy of a clinically suspicious lesion. Electronically Signed By: Bekah nur/yumiko:09/19/2022 11:03:30 letter sent: Normal Exam ACR BI-RADS Category 1: Negative [id number]
== END ==
PROVIDERS: PCP Nurse Practitioner; Referring Provider Nurse Practitioner; Visit Provider Nurse Practitioner
DX: Z12.31 Encounter for screening mammogram for malignant neoplasm of breast (principal); N92.0 Excessive and frequent menstruation with regular cycle; Z97.5 Presence of (intrauterine) contraceptive device
CPT/HCPCS: 76830; 76856; 77063; 77067

== ENCOUNTER → 2023-11-14 07:52 | Outpatient (CLI) | payer OTHER, SELFPAY ==
--- NOTE | 2023-11-14 | DI.MG.S_ITS ---
BILATERAL DIGITAL SCREENING MAMMOGRAM 3D/2D WITH CAD: 11/14/2023 CLINICAL: Routine screening. Comparison is made to exam dated: 09/19/2022 mammogram - [facility]. Both breasts are heterogeneously dense, which may obscure small masses (category c / 51-75% glandular tissue). Current study was also evaluated with a Computer Aided Detection (CAD) system. No significant masses, calcifications, or other findings are seen in either breast. There has been no significant interval change. IMPRESSION: NEGATIVE There is no mammographic evidence of malignancy. A 1 year screening mammogram is recommended. Based on the Tyrer Cuzick model (a risk assessment model) the patient's lifetime risk is 9.8% and her 10 year risk is 1.3%. According to the ACR, ACS, and NCCN guidelines, an annual breast MRI exam along with mammogram is recommended if the patient's lifetime risk is 20% or greater. This exam was interpreted at Station ID: [id number]. NOTE: For mammograms, a report in lay terms will be sent to the patient. Approximately 15% of breast malignancies will not be visualized mammographically. In the management of a palpable breast mass, a negative mammogram must not discourage biopsy of a clinically suspicious lesion. Electronically Signed By: Tank swanson/yumiko:11/14/2023 10:17:44 letter sent: Normal Exam ACR BI-RADS Category 1: Negative [id number]
== END ==
PROVIDERS: PCP Nurse Practitioner; Referring Provider Nurse Practitioner; Visit Provider Nurse Practitioner
DX: Z12.31 Encounter for screening mammogram for malignant neoplasm of breast (principal)
CPT/HCPCS: 77063; 77067

== ENCOUNTER → 2024-01-29 08:43 | Outpatient (CLI) | payer OTHER, SELFPAY ==
[2024-01-29 09:08] LABS: Add Manual Diff / Slide Review NO; Basophils Absolute Auto 0 /uL (0-100); Basophils Percent Auto 0.5 % (0-2); Eosinophils Absolute Auto 200 /uL (0-450); Eosinophils Percent Auto 3.4 % (2-4); Hematocrit 40.5 % (36-46); Hemoglobin 13.5 g/dL (12.0-16.0); Lymphocytes Absolute Auto 1600 /uL (1100-4500); Lymphocytes Percent Auto 32.7 % (25-40); Mean Corpuscular HGB Conc 33.2 % (30-36); Mean Corpuscular Hemoglobin 27.7 PG (26-34); Mean Corpuscular Volume 83.3 fL (80-100); Monocytes Absolute Auto 400 /uL (0-900); Monocytes Percent Auto 8.9 % (3-14); Neutrophils Absolute Auto 2700 /uL (1500-7000); Neutrophils Percent Auto 54.5 % (50-75); Platelet Count 239 X10^3/uL (150-400); Red Blood Cell Count 4.86 X10^6/uL (4.0-5.2); Red Cell Distribution Width 13.6 % (11.6-14.8); White Blood Cell Count 4.9 X10^3/uL (4.5-11.0)
[2024-01-29 09:21] LABS: HEMOLYSIS < 15 (0-50); Iron 90 ug/dL (37-170)
[2024-01-29 09:23] LABS: Alanine Aminotransferase 34 IU/L (<35); Albumin 4.2 g/dL (3.5-5.0); Albumin Globulin Ratio 1.3 (1.0-2.8); Alkaline Phosphatase 65 U/L (38-126); Aspartate Aminotransferase 30 IU/L (14-36); BUN Creatinine Ratio 21.6 (6-22); Bilirubin Total 0.7 mg/dL (0.2-1.3); Blood Urea Nitrogen 11 mg/dL (7-17); Carbon Dioxide 28 mmol/L (22-32); Chloride 108 mmol/L (98-107); Cholesterol 207 mg/dL (140-199); Estimated Glomerular Filt Rate > 60 mL/min (>60); Globulin 3.2 g/dL (1.7-4.1); Glucose 87 mg/dL (70-100); HDL Cholesterol 56 mg/dL (40-60); HEMOLYSIS < 15 (0-50); LDL Cholesterol Calculated 127 mg/dL (<100); Potassium 4.8 mmol/L (3.4-5.1); Sodium 140 mmol/L (137-145); Total Protein 7.4 g/dL (6.3-8.2); Triglycerides 120 mg/dL (35-150)
[2024-01-29 09:32] LABS: Creatinine Urine Random 203.2 mg/dL
[2024-01-29 09:33] LABS: Percent Iron Saturation 26 % (15-50); Total Iron Binding Capacity 348 ug/dL (265-497); Transferrin 277 mg/dL (206-381)
[2024-01-29 09:36] LABS: Microalbumi Creatinin Ratio Ur 5.9 ug/mg CR (<30); Microalbumin Urine Random 1.2 mg/dL (0-1.6)
[2024-01-29 09:37] LABS: Free T3, Triiodothyronine Free 3.53 pg/mL (2.77-5.27); Free T4, Direct Thyroxine 1.22 ng/dL (0.78-2.19)
[2024-01-29 09:50] LABS: Thyroid Stimulating Hormone 2.53 uIU/mL (0.47-4.68)
[2024-01-29 10:01] LABS: HIV 1 & 2 Ab/Ag 4th Gen Combo NEGATIVE (NEGATIVE)
[2024-01-30 16:25] LABS: Hep C Virus Ab w/Reflex Quant NEGATIVE s/c (NEGATIVE)
== END ==
PROVIDERS: PCP Nurse Practitioner; Referring Provider Nurse Practitioner; Visit Provider Nurse Practitioner
DX: Z00.00 Encounter for general adult medical examination without abnormal findings (principal); Z11.4 Encounter for screening for human immunodeficiency virus [HIV]; Z11.59 Encounter for screening for other viral diseases; L80 Vitiligo; E61.1 Iron deficiency
CPT/HCPCS: 36415; 80053; 80061; 82043; 82570; 83540; 83550; 84439; 84443; 84481; 85025; 86803; 87389

== ENCOUNTER → 2024-06-22 10:05 | Outpatient (CLI) | payer OTHER, SELFPAY ==
[2024-06-22 10:44] LABS: Add Manual Diff / Slide Review NO; Basophils Absolute Auto 0 /uL (0-100); Basophils Percent Auto 0.6 % (0-2); Eosinophils Absolute Auto 100 /uL (0-450); Eosinophils Percent Auto 2.2 % (2-4); Hematocrit 34.7 % (36-46); Hemoglobin 11.5 g/dL (12.0-16.0); Lymphocytes Absolute Auto 1900 /uL (1100-4500); Lymphocytes Percent Auto 41.4 % (25-40); Mean Corpuscular HGB Conc 33.1 % (30-36); Mean Corpuscular Hemoglobin 26.9 PG (26-34); Mean Corpuscular Volume 81.3 fL (80-100); Monocytes Absolute Auto 500 /uL (0-900); Monocytes Percent Auto 11.3 % (3-14); Neutrophils Absolute Auto 2100 /uL (1500-7000); Neutrophils Percent Auto 44.5 % (50-75); Platelet Count 278 X10^3/uL (150-400); Red Blood Cell Count 4.26 X10^6/uL (4.0-5.2); Red Cell Distribution Width 13.2 % (11.6-14.8); White Blood Cell Count 4.7 X10^3/uL (4.5-11.0)
[2024-06-22 11:07] LABS: HEMOLYSIS < 15 (0-50); Iron 54 ug/dL (37-170)
[2024-06-22 11:17] LABS: Percent Iron Saturation 14 % (15-50); Total Iron Binding Capacity 386 ug/dL (265-497); Transferrin 305 mg/dL (206-381)
== END ==
PROVIDERS: PCP Nurse Practitioner; Referring Provider Nurse Practitioner; Visit Provider Nurse Practitioner
DX: N92.0 Excessive and frequent menstruation with regular cycle (principal); D50.8 Other iron deficiency anemias
CPT/HCPCS: 36415; 83540; 83550; 85025

== ENCOUNTER → 2025-01-01 08:53 | Outpatient (CLI) | payer OTHER, SELFPAY ==
[2025-01-01 09:58] LABS: Add Manual Diff / Slide Review NO; Basophils Absolute Auto 0 /uL (0-100); Basophils Percent Auto 0.7 % (0-2); Eosinophils Absolute Auto 100 /uL (0-450); Eosinophils Percent Auto 1.9 % (2-4); Hematocrit 33.3 % (36-46); Hemoglobin 10.5 g/dL (12.0-16.0); Lymphocytes Absolute Auto 1500 /uL (1100-4500); Lymphocytes Percent Auto 25.4 % (25-40); Mean Corpuscular HGB Conc 31.6 % (30-36); Mean Corpuscular Hemoglobin 23.1 PG (26-34); Monocytes Absolute Auto 600 /uL (0-900); Monocytes Percent Auto 9.3 % (3-14); Neutrophils Absolute Auto 3800 /uL (1500-7000); Neutrophils Percent Auto 62.7 % (50-75); Platelet Count 376 X10^3/uL (150-400); Red Blood Cell Count 4.56 X10^6/uL (4.0-5.2); White Blood Cell Count 6.1 X10^3/uL (4.5-11.0)
[2025-01-01 10:36] LABS: HEMOLYSIS < 15 (0-50); Iron 20 ug/dL (37-170)
[2025-01-01 10:44] LABS: Alanine Aminotransferase 23 IU/L (<35); Albumin 4.7 g/dL (3.5-5.0); Albumin Globulin Ratio 1.6 (1.0-2.8); Alkaline Phosphatase 77 U/L (38-126); Aspartate Aminotransferase 31 IU/L (14-36); BUN Creatinine Ratio 20.3 (6-22); Bilirubin Total 0.6 mg/dL (0.2-1.3); Blood Urea Nitrogen 13 mg/dL (7-17); Calcium 9.3 mg/dL (8.4-10.2); Carbon Dioxide 23 mmol/L (22-32); Chloride 105 mmol/L (98-107); Cholesterol 210 mg/dL (140-199); Estimated Glomerular Filt Rate > 60 mL/min (>60); Globulin 2.9 g/dL (1.7-4.1); Glucose 86 mg/dL (70-100); HDL Cholesterol 72 mg/dL (40-60); HEMOLYSIS < 15 (0-50); LDL Cholesterol Calculated 121 mg/dL (<100); Potassium 4.6 mmol/L (3.4-5.1); Sodium 137 mmol/L (137-145); Total Protein 7.6 g/dL (6.3-8.2); Triglycerides 84 mg/dL (35-150)
[2025-01-01 10:48] LABS: Percent Iron Saturation 5 % (15-50); Total Iron Binding Capacity 432 ug/dL (265-497); Transferrin 405 mg/dL (206-381)
[2025-01-01 11:01] LABS: Free T3, Triiodothyronine Free 4.02 pg/mL (2.77-5.27); Free T4, Direct Thyroxine 1.27 ng/dL (0.78-2.19)
[2025-01-01 11:15] LABS: Thyroid Stimulating Hormone 1.98 uIU/mL (0.47-4.68)
[2025-01-01 14:26] LABS: Creatinine Urine Random 46.28 mg/dL
[2025-01-01 14:28] LABS: Microalbumin Urine Random < 0.6 mg/dL (0-1.6)
== END ==
PROVIDERS: PCP Family Medicine; Referring Provider Nurse Practitioner; Visit Provider Nurse Practitioner
DX: Z00.00 Encounter for general adult medical examination without abnormal findings (principal)
CPT/HCPCS: 36415; 80053; 80061; 82043; 82570; 83540; 83550; 84439; 84443; 84481; 85025

== ENCOUNTER → 2025-06-16 07:14 | Outpatient (CLI) | payer OTHER, SELFPAY ==
--- NOTE | 2025-06-16 07:14 | DI.US.S_ITS ---
PROCEDURE: US PELVIC COMPLETE INDICATIONS: MENORRHAGIA WITH REGULAR CYCLE TECHNIQUE: Real-time scanning was performed of the pelvic organs, with image documentation. Additional endovaginal scanning was necessary due to incomplete visualization of the adnexal and endometrial structures by transabdominal scanning. COMPARISON: [facility], US, US PELVIC COMPLETE, 09/19/2022, 8:18. FINDINGS: Uterus: Uterus is anteverted and normal in size at 10.1 x 4.8 x 7.3 cm. The myometrium is heterogenous with a solitary fibroid measuring 19 mm. The endometrium measures 6.3 mm combined thickness. Ovaries: The right ovary measures 1.4 x 1.6 x 1.4 cm, with a calculated ovarian volume of 1.7 cc. The left ovary measures 3.7 x 3.5 x 1.7 cm, with a calculated ovarian volume of 11.7 cc. The ovaries have a normal sonographic appearance. Less than 12 follicles can be seen in each ovary. No adnexal masses are seen. Dominant cyst in the left ovary measures 1.8 cm. Other: No pathologic free abdominal or pelvic fluid. IMPRESSION: Solitary uterine fibroid. We strive to produce accurate, complete, and clear reports of imaging services. To assist us in improving patient care, this report was composed using standard report templates and voice recognition software. Therefore, it may contain abnormal punctuation, insertions and/or omissions. Occasional wrong-word or sound-alike substitutions may occur. Though we review the report and make efforts to correct it, we do recommend that the report be read carefully in proper context to recognize any text inaccuracies. Dictated by: Tracy Dumont M.D. on 06/16/2025 at 12:35 Approved by: Tracy Dumont M.D. on 06/16/2025 at 12:37
== END ==
LOC: US 07:14
PROVIDERS: PCP Family Medicine; Referring Provider Family Medicine; Visit Provider Family Medicine
DX: N92.0 Excessive and frequent menstruation with regular cycle (principal); D25.1 Intramural leiomyoma of uterus; N83.202 Unspecified ovarian cyst, left side
CPT/HCPCS: 76830; 76856

== ENCOUNTER → 2025-11-15 09:13 | Outpatient (CLI) | payer OTHER, SELFPAY ==
[2025-11-15 10:42] LABS: Influenza A - CEPHEID Flu A NEGATIVE (NEGATIVE); Influenza B - CEPHEID Flu B NEGATIVE (NEGATIVE)
[2025-11-15 11:10] LABS: COVID-19 CEPHEID 4-PLEX PCR Negative (Negative)
== END ==
PROVIDERS: PCP Family Medicine; Visit Provider Nurse Practitioner Family
DX: J02.9 Acute pharyngitis, unspecified (principal)
CPT/HCPCS: 87070; 87637

== ENCOUNTER 2025-11-17 20:12 | Emergency (ER) | payer OTHER, SELFPAY ==
[2025-11-17 20:14] VITALS: BP 136/64; PULSE 100; RESP 14; TEMP 36.3; O2SAT 99; BMI 24.0
[2025-11-17] MEDS: PROPARACAINE 0.5% OPHTH SOL 1 DROPS EYE-BOTH (20:25)
[2025-11-17] MEDS: FLUORESCEIN 1 MG STRIP EYE-BOTH (20:25)
[2025-11-17] MEDS: TET,DIPH,PERTUSS(ACELL),VAC/PF 0.5 ML SYRINGE IM (20:26)
--- NOTE | 2025-11-17 21:58 | DI.CT.S_ITS ---
PROCEDURE: CT ORBIT BI W CON INDICATIONS: r/o preorbiral cellulitis TECHNIQUE: After the administration of intravenous contrast, 2.5 mm axial images acquired through the orbits, with coronal and sagittal reformats. For radiation dose reduction, the following was used: automated exposure control, adjustment of mA and/or kV according to patient size. COMPARISON: None. FINDINGS: Image quality: Diagnostic Orbits: Globes appear symmetric. Symmetric, unremarkable appearance of the optic nerves. No significant retro bulbar edema. The intraconal fat appears unremarkable. Symmetric appearing unremarkable extraocular muscles. Unremarkable appearance of the lacrimal glands. Left preorbital and periorbital edema are seen, [id number] Intracranial: Partially visualized, no gross abnormality. No pituitary mass lesion is seen. Bones and sinuses: No significant paranasal sinus opacity. Mild ethmoid mucosal thickening. No significant mastoid effusion. IMPRESSION: Left periorbital and preseptal txbf-[id number] edema. No drainable fluid collection is seen. No significant involvement identified in the intra conal or retrobulbar fat or extraocular muscles Dictated by: Tank Bennett M.D. on 11/17/2025 at 22:30 Approved by: Tank Bennett M.D. on 11/17/2025 at 22:34
--- NOTE | 2025-11-17 22:49 | ED.EYEPROB ---
HPI - Eye Problem General Chief complaint: Eye Problems Stated complaint: Eye problem Time Seen by Provider: 11/17/25 21:32 Source: patient Mode of arrival: Ambulatory History of Present Illness HPI Narrative: Patient is a 45-year-old female who presents with 2 day history of left eye pain, swelling, and drainage. Past medical history significant for hyperlipidemia, Graves disease, iron deficient anemia. 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 She reports the drainage is purulent. No fevers, chills, nausea, vomiting. She intermittently wears glasses but no contact lenses. She has decreased vision in the left side. Denies headache, ear pain or any lymphadenopathy. Related Data Previous Rx's ?Medication ?Instructions ?Recorded amoxicillin 875 mg tablet 875 mg PO BID #7 tabs 11/17/25 sulfamethoxazole 400 1 tab PO BID #9 tabs 11/17/25 mg-trimethoprim 80 mg tablet (Bactrim) Allergies Allergy/AdvReac Type Severity Reaction Status Date / Time adhesive Allergy Unknown LOCAL Verified 11/17/25 20:14 BLISTER FROM ADHESIVE AND TAPE Review of Systems Review of Systems Narrative: See HPI. Patient History Medical History HLD (hyperlipidemia) Vitiligo Other iron deficiency anemia (10/09/16) Graves' disease (10/09/16) Surgical History History of third molar tooth extraction Status post tubal ligation (02/17/15) Status post delivery (02/17/15) Status post delivery (10/22/12) Status post delivery (07/09/07) Status post delivery (09/17/03) Social History household members: spouse Smoking Status: Unknown if ever smoked alcohol intake: current Smoking Status: Unknown if ever smoked alcohol intake frequency: holidays/special occasions only Exam Narrative Exam Narrative: Vitals: Tachycardic (HR 100), hypothermic (97.4F), all other vital signs normal Gen: Well-developed, well-nourished, no acute distress Eyes: Right eyes with sclerae are clear. EOMI without any pain on ocular movement bilaterally. Pupils equal round reactive. Left eye has moderate periorbital edema, with watery/purulent drainage. She has decreased for vision in left eye. Eyelid eversion did not reveal any foreign bodies. No proptosis. Cards: Regular on my evaluation no murmurs rubs or gallops Lungs: No increased work of breathing. Clear to auscultation. Abd: Nondistended Ext: No peripheral edema in bilateral lower extremities Neuro: A and O x4. Cranial nerves grossly intact. Moving all 4 extremities spontaneously. Psych: Appropriate. Initial Vital Signs Initial Vital Signs: Vital Signs Temperature 97.4 F L 11/17/25 20:14 Pulse Rate 100 H 11/17/25 20:14 Respiratory Rate 14 11/17/25 20:14 Blood Pressure 136/64 11/17/25 20:14 Pulse Oximetry 99 11/17/25 20:14 Oxygen Delivery Method Room Air 11/17/25 20:14 Procedures [facility] [place] Procedure Name of Procedure: Indication: Evaluation of the cornea for abrasion, ulceration, foreign body, or epithelial defect. Procedure Performed: Fluorescein Staining of the Eye Technique: --Patient positioned comfortably. --Lower eyelid gently retracted. --Fluorescein strip moistened with sterile saline and lightly applied to the inferior conjunctival fornix. -Patient instructed to blink to distribute dye across the cornea. --Eldridge blue light used to examine the cornea and conjunctiva.. Findings: No fluorescein uptake without any epithelial defect noted Course Orders Ordered: Discontinued Medications Amoxicillin (Amoxicillin 250 Mg Capsule) 500 mg PO NOW ONE Stop: 11/17/25 22:56 Last Admin: 11/17/25 23:09 Dose: 500 mg Documented By: ROMEO Amoxicillin (Amoxicillin 250 Mg Capsule) 250 mg PO NOW ONE Stop: 11/17/25 22:56 Last Admin: 11/17/25 23:10 Dose: 250 mg Documented By: ROMEO Amoxicillin (Amoxicillin 250 Mg Prepack) 1 [place] [facility] [place] Stop: 11/17/25 22:58 Last Admin: 11/17/25 23:09 Dose: 1 bottle Documented By: ROMEO Amoxicillin/Clavulanate Potassium (Amoxicillin/Clav 875/125 Mg) 1 tab PO NOW ONE Stop: 11/17/25 22:51 Last Admin: 11/17/25 23:23 Dose: Not Given Documented By: ROMEO Diphtheria/Tetanus/Acell Pertussis (Tet,Diph,Pertuss(Acell),Vac/Pf 0.5 Ml Syringe) 0.5 ml IM .ONCE ONE Stop: 11/17/25 20:19 Last Admin: 11/17/25 20:26 Dose: 0.5 ml Documented By: BARBIE Fluorescein Sodium (Fluorescein 1 Mg Strip) 1 mg EYE-BOTH NOW ONE Stop: 11/17/25 20:19 Last Admin: 11/17/25 20:25 Dose: 1 mg Documented By: BARBIE Proparacaine HCl (Proparacaine 0.5% Ophth Kylee) 1 drops EYE-BOTH NOW ONE Stop: 11/17/25 20:19 Last Admin: 11/17/25 20:25 Dose: 1 drop Documented By: BARBIE Trimethoprim/Sulfamethoxazole (Trimeth/Sulfa 160/800 (Ds) Tablet) 1 tab PO NOW ONE Stop: 11/17/25 22:51 Last Admin: 11/17/25 23:10 Dose: 1 tab Documented By: ROMEO Vital Signs Vital signs: Vital Signs - 8 hr 11/17/25 23:24 Pulse Rate 97 H Respiratory Rate 16 Blood Pressure 135/72 Pulse Oximetry 99 Oxygen Delivery Method Room Air MDM - Eye Problem Imaging Data CT scan - head: Radiologist's Impression: Procedure: CT orbit BI w con Ordering Provider: Ivonne Muhammad MD PROCEDURE: CT ORBIT BI W CON INDICATIONS: r/o preorbiral cellulitis TECHNIQUE: After the administration of intravenous contrast, 2.5 mm axial images acquired through the orbits, with coronal and sagittal reformats. For radiation dose reduction, the following was used: automated exposure control, adjustment of mA and/or kV according to patient size. COMPARISON: None. FINDINGS: Image quality: Diagnostic Orbits: Globes appear symmetric. Symmetric, unremarkable appearance of the optic nerves. No significant retro bulbar edema. The intraconal fat appears unremarkable. Symmetric appearing unremarkable extraocular muscles. Unremarkable appearance of the lacrimal glands.Left preorbital and periorbital edema are seen, [id number] Intracranial: Partially visualized, no gross abnormality. No pituitary mass lesion is seen. Bones and sinuses: No significant paranasal sinus opacity. Mild ethmoid mucosal thickening. No significant mastoid effusion. IMPRESSION: Left periorbital and preseptal oazp-ld-vbryfngj edema. No drainable fluid collection is seen. No significant involvement identified in the intra conal or retrobulbar fat or extraocular muscles MDM Narrative Medical decision making narrative: Patient is a 45-year-old female who presents with 2 day history of edema, and drainage of the left eye. Differential diagnosis: Orbital cellulitis, retrobulbar abscess, orbital abscess, foreign body, herpes simplex versus zoster, viral versus bacterial conjunctivitis, erysipelas, allergic reaction, blepharitis, chalazion, stye hordeolum, other. Labs: None. Imaging: CT orbit with left periorbital and preseptal pwxq-py-xdiqdhip edema without any discrete fluid collection. EKG: Not indicated ED course: Patient arrived to the ED mildly tachycardic and hyperthermic. On evaluation she had moderate edema to the left eye, conjunctiva was injected, she had no proptosis or pain with extraoccular movements, there was watery purulent drainage noted. No foreign bodies were noted on eyelid eversion test, no evidence of corneal abration on fluorescein stain test. Patient was given her first dose of amoxicilling and bactrim in the ED and sent home on a total 5 day antibiotic course. She was instructed to not wear make up, consider throwing away current make up products that may be contaminated, and also informed of return precautions. Discharge Plan Departure Patient Disposition: Home Clinical Impression: Periorbital cellulitis of left eye Instructions: DI for Orbital Cellulitis Activity Restrictions/Additional Instructions: You were seen in the emergency department for swelling and discharge from your left eye. In the ER: -- Physical exam did not reveal any foreign bodies on your eye or under her eyelids -- Fluorescein eye stain did not show any corneal abrasions -- CT scan revealed significant swelling and inflammation around your eye and you were diagnosed with preseptal cellulitis -- You were given your 1st dose of Bactrim and amoxicillin in the ER Plan: -- START Bactrim take 1 tab every 12 hours until all of the pills are gone -- START Amoxicillin 750mg every 12 hours (you were given a total of three doses) and a prescription for 875 mg amoxicillin take every 12 hours until all pills are gone -- STOP wearing makeup until your symptoms improve in you have cleared this infection -- Do not rub your eyes. If you touch her eyes wash her hands thoroughly as you can transfer this infection and other people. Return to the ER if you develop increased eye pain, vision loss, or any other worsening symptoms. Prescriptions: New sulfamethoxazole-trimethoprim [Bactrim] 400-80 mg tablet 1 tab PO BID Qty: 9 0RF amoxicillin 875 mg tablet 875 mg PO BID Qty: 7 0RF Referrals: Taya Sharif MD [Primary Care Provider, Family Practice] Stand Alone Forms: Patient Portal/API
[2025-11-17] MEDS: AMOXICILLIN 250 MG PREPACK 1 BOTTLE MISC (23:09)
[2025-11-17] MEDS: AMOXICILLIN 250 MG CAPSULE 500 MG PO (23:09)
[2025-11-17] MEDS: AMOXICILLIN 250 MG CAPSULE PO (23:10)
[2025-11-17] MEDS: TRIMETH/SULFA 160/800 (DS) TABLET 1 TAB PO (23:10)
[2025-11-17 23:24] VITALS: BP 135/72; PULSE 97; RESP 16; O2SAT 99
== END 2025-11-17 23:25 | disposition home or self-care (01) ==
PROVIDERS: Emergency Provider Student in an Organized Health Care Education/Training Program; PCP Family Medicine
DX: L03.213 Periorbital cellulitis (principal); H54.50 Low vision, one eye, unspecified eye; Z23 Encounter for immunization
CPT/HCPCS: 70481; 99283; 90715; Q9967